=== PATIENT | female | born 2005 | race Caucasian/White ===

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

== ENCOUNTER 2024-03-15 16:29 | Emergency (ER) | payer MEDICAID, SELFPAY ==
[2024-03-15 16:30] VITALS: BP 121/95; PULSE 97; RESP 16; TEMP 36.6; O2SAT 99; BMI 35.8
--- NOTE | 2024-03-15 16:38 | EDS_ITS ---
HPI History of Present Illness Chief Complaint: Back PFSH PFSH Home Medications ?Medication ?Instructions ?Recorded ?Last Taken ?Type NK 11/18/22 Unknown History Allergy/AdvReac Type Severity Reaction Status Date / Time dog dander Allergy Mild Itching Verified 03/15/24 16:30 bee pollen Allergy Swelling Verified 03/15/24 16:30 peanut Allergy Hives Verified 03/15/24 16:30 soy Allergy Hives Verified 03/15/24 16:30 wheat Allergy Hives Verified 03/15/24 16:30 Social History (Updated 06/12/20 @ 12:49 by PRANAY Padilla) Smoking Status: Never smoker EXAM Physical Exam Const Vital Signs: 03/15/24 16:30 03/15/24 18:15 Temperature 98 F Temperature Source Temporal Pulse Rate 97 92 Respiratory Rate 16 16 Blood Pressure 121/95 H 122/89 H Blood Pressure Mean 103 100 Pulse Ox 99 99 Oxygen Delivery Method Room Air MDM MDM MDM Narrative Medical decision making narrative: HISTORY OF PRESENT ILLNESS: 18-year-old female presents with back pain and leg pain. [place] and twisted wrong way injuring her back. She notes she fell today as well. Patient denies any saddle anesthesia, urinary retention, bowel or bladder incontinence, lower extremity weakness, fever or IV drug use, no recent spinal manipulation or surgery, no recent urinary catheterization. REVIEW OF SYSTEMS: Pertinent positives: Back pain, leg pain Pertinent negatives: Urinary complaints, fever PHYSICAL EXAM: Nursing triage notes reviewed, Vital signs reviewed Constitutional: please see mdm HENT: MMM Eyes: Pupils equal round and reactive to light, Extraocular muscles intact Neck: No stridor, no JVD, full neck ROM Lungs: Clear to auscultation, No wheezing or rales. No increased work of breathing, no conversational dyspnea, no accessory muscle use, no nasal flaring. No respiratory distress noted Heart: Regular rate and rhythm, No murmurs, No rubs and No gallops, 2+ distal pulses (radial, femoral, posterior tibial) in all extremities Abdomen: Soft, there is no tenderness, rigidity, rebound or guarding, no obvious peritoneal signs, no palpable pulsatile abdominal masses, no auscultated abdominal bruit : No CVAT Extremities: No edema Neuro: No focal neurological deficits, cranial nerves II through XII intact, 5/5 strength in all extremities. Intact sensation to light touch in all extremities, 2+ reflexes bilateral patella tendons. Normal gait. No ataxia. Skin: No rash or lesions noted MEDICAL DECISION MAKING: Chief Complaint: Back pain External records reviewed: No recent adVanced imaging of the back. Factors affecting care: none Social determinants of health: none History obtained from others: none Consults: none MDM Narrative: Patient was initially hemodynamically stable, afebrile, nontoxic-appearing. Exam without obvious step-offs deformities. Exam without obvious lower extremity neurovascular deficit. I considered the following differential diagnosis: Muscle skeletal back strain, fracture dislocation I obtained an x-ray of the lumbar spine to rule out any bony abnormality or malalignment. I gave the patient Tylenol, lidocaine patches. ALL IMAGES (IF OBTAINED) HAVE BEEN PERSONALLY REVIEWED AND INTERPRETED BY MYSELF. X-ray lumbar spine was read reviewed personally myself shows no evidence of ob vious bony abnormality. Will await radiologist interpretation. Radiologist agrees my interpretation. Urine test is negative The synthesis of the patient's history, physical exam, labs images suggest no acute life-limiting etiology. Likely musculoskeletal strain. Encouraged Tylenol, ibuprofen and lidocaine patches. Strict return precautions were discussed. The patient presented complaining of back pain. There was no evidence to support genitourinary etiology. There is also no evidence to suggest vascular pathology such as AAA dissection. No fevers or other evidence to suspect infectious processes, abscess, osteomyelitis etc. The patient?s neurological exam is normal with normal motor and sensory. There is no saddle paresthesias reported and no bowel or bladder incontinence or retention. I suspect the pain is mechanical in nature. Clinical suspicion, plan of care and management was discussed with the patient. The patient was instructed to follow up with their health care provider. The patient was also instructed to return if the pain worsened, changed, or developed weakness or bowel or bladder trouble. The patient agreed with plan. I completed a structured, evidence-based clinical evaluation to screen for acute non-traumatic spinal emergencies. The patient has a normal detailed neurologic exam and red flag historical factors were negative. The evidence indicates that the patient is very low risk for an acute spinal emergency and this is consistent with my clinical intuition. The risk of further workup is higher than the likelihood of the patient having a spinal epidural abscess or other dangerous emergency spinal condition. It is, therefore, in the patient?s best interest not to do additional emergent testing at this time. The patient and/or family, caregivers express understanding. The patient and/or family, caregivers agrees with the plan. Shared decision making: I will have a discussion with the patient and or visitors regarding risk/benefi ts of further testing or admission. They will be made aware of of the risk/benefits inherent in this decision they will be given the opportunity to voice understanding. Total critical care time today provided was at least 0 minutes. This excludes separately billable procedures. Critical care time (if documented) is secondary to the patient having high probability of clinically significant/life threatening deterioration in the patient's condition which required my urgent intervention. Impression: 1. Acute back pain 2. Acute back strain Dispo: Discharge home This note was generated with [employer] dictation software. It may contain incorrect words, spelling, and punctuation that were not noted in review of the chart prior to signing. Lab Data Labs: Laboratory Results - last 24 hr 03/15/24 17:19 Urine Test Negative Radiography Diagnostic Testing: Clinical Impression(s) from Imaging Studies Lumbar Spine X-Ray 03/15/24 17:28 IMPRESSION: Normal x-ray examination of the lumbar spine. Electronically Signed: Jt Doyle MD at 17:41 EDT Reading Location ID and State: [facility] / [place] Tel , Service support , Discharge Plan Triage Chief Complaint: Back Other Complaint: Lower Extremity Injury ED Provider: Aristides Lee Dx/Rx/DC Orders Clinical Impression: Back strain Instructions: ED Back Sprain/Strain Prescriptions: No Action NK Primary Care Provider: Lolita Baires NP Referrals: Carlos Langston MD [Non-Staff] - Activity Restrictions/Additional Instructions: Thank you for trusting us with your care today! Your x-ray results were negative. Please take Tylenol (2 pills, 650 mg), ibuprofen (2 pills, 400 mg) every 6 hours as needed for pain and fever control. Please return to the emergency department if your symptoms change or worsen. Specifically develop loss of movement or sensation in your lower extremities, bowel or bladder incontinence, urinary retention, severe pain that is not improved by the above regimen. Please follow with your primary care physician for further outpatient evaluation and management. Print Language: Lao Disposition Disposition: Home, Self Care Discharge Date/Time: 03/15/24 18:16
[2024-03-15] MEDS: Acetaminophen 325 MG Tablet 650 MG PO (17:10)
[2024-03-15] MEDS: Lidocaine 5% Patch 1 PATCH TOPICAL (17:10)
--- NOTE | 2024-03-15 17:28 | RAD_ITS ---
STUDY: X-RAY - LUMBAR SPINE REASON FOR EXAM: Female, 18 years old. back pain TECHNIQUE: 3 view(s) of the lumbar spine were obtained. COMPARISON: None FINDINGS: Normal lumbar lordosis. There is no substantial scoliosis. There is a normal alignment of the vertebrae. Normal vertebral bodies and endplates. Normal disc space heights. The soft tissue structures are unremarkable. RAD/Lumbar Spine 2 or 3 Views IMPRESSION: Normal x-ray examination of the lumbar spine. Electronically Signed: Jt Doyel MD at 17:41 EDT ,
[2024-03-15 17:31] LABS: Internal QC Validated? YES +Cl - CLEAR BKGD; Pregnancy, Urine Negative Negative
[2024-03-15] MEDS: Ibuprofen 200 MG Tablet 400 MG PO (17:48)
[2024-03-15 18:15] VITALS: BP 122/89; PULSE 92; RESP 16; O2SAT 99
== END 2024-03-15 18:16 | disposition home or self-care (01) ==
PROVIDERS: Emergency Provider Emergency Medicine; PCP Nurse Practitioner Family; Visit Provider Emergency Medicine
DX: S39.012A Strain of muscle, fascia and tendon of lower back, initial encounter (principal); M79.606 Pain in leg, unspecified; W19.XXXA Unspecified fall, initial encounter
CPT/HCPCS: 72100; 81025; 99285